=== PATIENT | male | born 1990 | race Caucasian/White ===

== ENCOUNTER → 2025-04-08 | Outpatient (REF) | payer OTHER ==
[2025-04-08 11:50] LABS: SEMEN APPEARANCE OPAQUE (OPAQUE)
[2025-04-08 11:51] LABS: SEMEN VISCOSITY LIQUID (LIQUID); SEMEN VOLUME 2.6 ml (2.0-5.0); SPERM CONCENTRATION 63.4 M/ml (>=15.0); WBC CONCENTRATION <=1 M/ml (<=1 M/ml)
[2025-04-08 11:52] LABS: TOTAL PROGRESSIVE SPERM 58.1 M/Ejac.
== END ==
LOC: M LAB 10:46
PROVIDERS: ATTEND Specialist
DX: N46.9 Male infertility, unspecified (principal)